=== PATIENT | female | born 1955 | race Caucasian/White ===

== ENCOUNTER 2018-03-28 19:34 | Emergency (ER) | payer MEDICARE ==
[~2018-03-28] VITALS: Ht 160 cm; Wt 77.1 kg
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
--- OUTSIDE RECORDS SUMMARY | 2018-03-28 19:37 | XMS REPORT ---
Author Author [facility] Address Unknown Phone Unavailable Care Team Providers Care Segment Assembler Name Role Phone Unavailable Unavailable Payers Payer Name Policy Type Policy Number Effective Date Expiration Date Problems This patient has no known problems. Allergies, Adverse Reactions, Alerts Allergy Name Allergy Type Status Severity Reaction(s) Onset Date Inactive Date Treating Clinician Comments Sulfa (Sulfonamide Antibiotics) DA Active [place] 2016-11-11 00:00:00 venom-honey bee DA Active U 2016-11-11 00:00:00 Medications This patient has no known medications.
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
--- OUTSIDE RECORDS SUMMARY | 2018-03-28 19:37 | XMS REPORT | Summary of Care ---
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 Role Phone LISA Patel, EVONNE Unavailable Unavailable YERuth D.OCandi, [place] Unavailable Unavailable SONDRA Patel, [place] Unavailable Unavailable YEH DO [place], [place] Unavailable Unavailable Unavailable Unavailable Functional Status Name Dates Details Functional status health issues are not documented Status: Name Dates Details Cognitive status health issues are not documented Status: Problems Name Dates Details Excessive cerumen in left ear canal (380.4, H61.22) Status: Active GERD without esophagitis (530.81, K21.9) Status: Active Abdominal bloating (787.3, R14.0) Status: Active Flatulence (787.3, R14.3) Status: Active Abdominal pain (789.00, R10.9) Status: Active Nausea (787.02, R11.0) Status: Active Fatty liver disease, nonalcoholic (571.8, K76.0) Status: Active Anxiety (300.00, F41.9) Status: Active COPD, 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 Quantity: 90 [place]OR[place] AMARO M.D. Active Sucralfate 1 GM Oral Tablet TAKE 1 TABLET 4 TIMES DAILY 1 HOUR BEFORE MEALS AND AT BEDTIME. * Quantity: 120 Refills: 5 YEH D.O., KEVIN-SÁNCHEZ Active Loxapine Succinate 25 MG Oral Capsule TAKE 1 CAPSULE TWICE DAILY. * Quantity: 60 Refills: 5 YEH D.O.[place] Active MetFORMIN HCl - 500 MG Oral Tablet TAKE 1 TABLET TWICE DAILY. * Quantity: 60 Refills: 2 EVONNE GONZALEZ M.D. Active ProAir HFA 108 (90 Base) MCG/ACT Inhalation Aerosol Solution INHALE 1 PUFF BY MOUTH EVERY 4 HOURSWAITING ON LABS * Quantity: 8.5 Refills: 5 YEH D.O.[place] * Start : 14-May-2017 Active Albuterol Sulfate (2.5 MG/3ML) 0.083% Inhalation Nebulization Solution USE 1 UNIT DOSE EVERY 4-6 HOURS NEEDED FOR WHEEZING . * Quantity: 1 Refills: 5 YEH D.O.[place] Active 25 x 3 ML Plas Cont Ventolin HFA 108 (90 Base) MCG/ACT Inhalation Aerosol Solution INHALE 1 TO 2 PUFFS BY MOUTH EVERY 4 TO 6 HOURS NEEDED * Quantity: 1 Refills: 5 YEH D.O.[place] * Start : 22-Apr-2017 Active 18 GM Inhaler Spiriva HandiHaler 18 MCG Inhalation Capsule INHALE CONTENTS OF 1 CAPSULE ONCE DAILY. * Quantity: 30 Refills: 5 YEH D.O.[place] * Start : 22-Apr-2017 Active Losartan Potassium 25 MG Oral Tablet TAKE 1 TABLET Daily * Quantity: 30 Refills: 5 YEH D.O.[place] * Start : 22-Apr-2017 Active Advair Diskus 250-50 MCG/DOSE Inhalation Aerosol Powder Breath Activated INHALE 1 PUFF TWICE DAILY. * Quantity: 1 Refills: 5 YEH D.O.[place] * Start : 22-Apr-2017 Active 14 Each Pack CloNIDine HCl - 0.1 MG Oral Tablet TAKE 1 TABLET BY MOUTH AT BEDTIME * Quantity: 90 Refills: 1 YEH D.O.[place] * Start : 22-Apr-2017 Active Nebulizer Device USE DIRECTED. * Quantity: 1 Refills: 0 YEH D.O.[place] * Start : 22-Apr-2017 Active HumaLOG KwikPen 100 UNIT/ML Subcutaneous Solution Pen-injector inject 20 U SC qAC plus CF 1:50>150 mg/dL MDD:80 U * Quantity: 2 Refills: 2 LISA M.D., EVONNE * Start : 01-May-2017 Active 5 x 3 ML Pen BD Pen Needle Leatha U/F 32G X 4 MM use to inject insulin 4xs daily * Quantity: 2 Refills: 2 LISA M.D., EVONNE * Start : 01-May-2017 Active 100 Unit Box Omeprazole 40 MG Oral Capsule Delayed Release TAKE 1 CAPSULE DAILY * Quantity: 30 Refills: 11 YEH D.O., [place] * Start : 28-Jul-2017 Active Carafate 1 GM/10ML Oral Suspension TAKE 10 ML 3 TIMES DAILY * Quantity: 90 Refills: 11 YEH D.O., [place] * Start : 28-Jul-2017 Active Tresiba FlexTouch 200 UNIT/ML Subcutaneous Solution Pen-injector inject 66 U SC qHS MDD:75 U * Quantity: 2 Refills: 2 LISA M.D., EVONNE * Start : 27-Aug-2017 Active 3 x 3 ML Pen Trulicity 0.75 MG/0.5ML Subcutaneous Solution Pen-injector inject 0.75 mg SC once weekly * Quantity: 1 Refills: 2 LISA M.D., EVONNE * Start : 27-Aug-2017 Active 4 x 0.5 ML Pen PARoxetine HCl - 40 MG Oral Tablet TAKE 1 TABLET DAILY DIRECTED. * Quantity: 90 Refills: 0 AMARO M.D., VENESSAOTICOE * Start : 27-Oct-2017 Active Cetirizine HCl - 10 MG Oral Tablet TAKE 1 TABLET DAILY PRN * Quantity: 30 Refills: 5 YEH D.O., [place] * Start : 10-Feb-2018 Active Montelukast Sodium 10 MG Oral Tablet TAKE 1 TABLET BY MOUTH EVERY DAY * Quantity: 30 Refills: 5 YEH D.O., KEVIN-SÁNCHEZ * Start : 10-Feb-2018 Active Allergies and Adverse Reactions Name Dates Details Sulfa Drugs (Allergy) Status: Active Past Medical History Name Dates Details H/O cardiovascular stress test (V15.89, Z92.89) Status: Resolved History of arthritis (V13.4, Z87.39) Status: Resolved History of asthma (V12.69, Z87.09) Status: Resolved History of chronic obstructive lung disease (V12.69, Z87.09) Status: Resolved History of diabetes mellitus (V12.29, Z86.39) Status: Resolved History of hypertension (V12.59, Z86.79) Status: Resolved Procedures Procedure Dates Details EKG (In Office) Date: 18-Feb-2018 History of section Completed History of Sinus surgery Completed History of Tonsillectomy Completed History of Hernia repair Completed Immunization Name Dates Details Fluzone Quadrivalent 0.5 ML Intramuscular Suspension Prefilled Syringe Lot #: [id number] on: 18-Feb-2018 Family History Name Dates Details Family history of diabetes mellitus (V18.0, Z83.3) Comments: Family History Status: Active Name Dates Details Family history of renal failure (V18.69, Z84.1) Status: Active Name Dates Details Family history of bowel obstruction (V18.59, Z83.79) Status: Active Family history of pancreatitis (V18.59, Z83.79) Status: Active Social History Name Dates Details - Status: Name Dates Details Current every day smoker Vital Signs Date Test Result Details [id number] BP Systolic 121 mm[Hg] Status: Comments: Location: LUE; Position: Sitting BP Diastolic 82 mm[Hg] Status: Comments: Location: LUE; Position: Sitting Height 63 in Status: Body Mass Index Calculated 30.32 kg/m2 Status: Body Surface Area Calculated 1.81 m2 Status: Weight 171.1875 lb Status: Heart Rate 99 /min Status: 70-[id number]:11 BP Systolic 117 mm[Hg] Status: Comments: Location: LUE; Position: Sitting BP Diastolic 77 mm[Hg] Status: Comments: Location: LUE; Position: Sitting Height 63 in Status: Body Mass Index Calculated 30.9 kg/m2 Status: Body Surface Area Calculated 1.82 m2 Status: Weight 174.4375 lb Status: Heart Rate 86 /min Status: Temperature 97.6 f Status: Comments: Method: Temporal Respiration Rate 16 /min Status: 75-[id number] BP Systolic 120 mm[Hg] Status: Comments: Location: LUE; Position: Sitting BP Diastolic 80 mm[Hg] Status: Comments: Location: LUE; Position: Sitting Height 63 in Status: Body Mass Index Calculated 30.82 kg/m2 Status: Body Surface Area Calculated 1.82 m2 Status: Weight 174 lb Status: Heart Rate 101 /min Status: Temperature 98 f Status: Comments: Method: Temporal Respiration Rate 16 /min Status: [id number]:10 Physical Findings 9 Status: Comments: PHQ-9 Adult Depression Screening Physical Findings 13 Status: Comments: MARCELA-7 Screening [id number]-[id number]:09 BP Systolic 130 mm[Hg] Status: Comments: Location: LUE; Position: Sitting BP Diastolic 85 mm[Hg] Status: Comments: Location: LUE; Position: Sitting Height 63 in Status: Body Mass Index Calculated 31.63 kg/m2 Status: Body Surface Area Calculated 1.84 m2 Status: Weight 178.5625 lb Status: Heart Rate 117 /min Status: Comments: Location: L Brachial Artery; Temperature 96.8 f Status: Comments: Method: Temporal Respiration Rate 16 /min Status: Results Date Description Value Details [id number] Glucose (Point of Care In Office) Glucose POC Lifescan 107 06-Mxg-222464:14 [O] Hemoglobin A1c (in office) HEMOGLOBIN A1c 6.1 Plan of Care Name Dates Details Planned Observations Planned Goals not documented Planned Encounters Appointment; FLOR[place] AMARO M.D. On: 14-Apr-2018 13:30 Appointment; EVONNE GONZALEZ M.D. On: 21-May-2018 13:00 Interventions Provided Medication Changes* BD Pen Needle Leatha U/F 32G X 4 MM - Renew * HumaLOG KwikPen 100 UNIT/ML Subcutaneous Solution Pen-injector - Renew * MetFORMIN HCl - 500 MG Oral Tablet - Renew * Tresiba FlexTouch 200 UNIT/ML Subcutaneous Solution Pen-injector - Renew * Trulicity 0.75 MG/0.5ML Subcutaneous Solution Pen-injector - Renew Labs/Procedures/Imaging* [O] Hemoglobin A1c (in office); Done: 18 Feb 2018 * Glucose (Point of Care In Office); Done: 18 Feb 2018 Instructions* Patient Specific Education Given; Done: 18 Feb 2018 Medications/Immunizations Administered* Fluzone Quadrivalent 0.5 ML Intramuscular Suspension Prefilled Syringe; Done: 18 Feb 2018 Discussion/Summary* 62 yo F with DM2 here for f/u. * A1c is 6.1%, at goal. Recommend SMBG 3-4xs daily. Continue Tresiba 66 U qHS, Humalog 20 U qAC plus CF 50 if needed. Advised against taking until her meal in front of her to avoid hypoglycemia. She reported she understood. Continue metformin 500 mg BID and Trulicity 0.75 mg SC once weekly. Recommend MNT, avoid unnecessary snacking, exercise and weight loss. BP is good. She's agreeable to flu vaccine today. She still has not done any baseline labs, stressed the importance, she reported she will go tomorrow. F/U in 3 mos. Instructions Name Dates Details Instructions not documented Encounters Appointment; CHINA BELL D.O. Encounter Diagnosis: Problem not documented On: 22-Apr-2017 14:00 Appointment; DELVIN CRENSHA[address] Encounter Diagnosis: Problem not documented On: 30-Apr-2017 15:00 Appointment; EVONNE GONZALEZ M.D. Encounter Diagnosis: Problem not documented On: 10-Jun-2017 13:00 Appointment; DAVY HUGHES M.D. Encounter Diagnosis: Problem not documented On: 30-Jun-2017 14:30 Appointment; CH[place] BELL D.O. Encounter Diagnosis: Problem not documented On: 14-Jul-2017 15:30 Appointment; JF RED M.D. Encounter Diagnosis: Problem not documented On: 28-Jul-2017 13:00 Appointment; NGOZI HOWELL M.D. Encounter Diagnosis: Problem not documented On: 04-Aug-2017 15:30 Appointment; EVONNE GONZALEZ M.D. Encounter Diagnosis: Problem not documented On: 27-Aug-2017 13:00 Appointment; CH[place] BELL D.O. Encounter Diagnosis: Problem not documented On: 27-Oct-2017 15:45 Appointment; EVONNE GONZALEZ M.D. Encounter Diagnosis: Problem not documented On: 25-Nov-2017 13:00 Appointment; FLOR[place] AMARO M.D. Encounter Diagnosis: Problem not documented On: 08-Dec-2017 15:00 Appointment; [place] AMARO M.D. Encounter Diagnosis: Problem not documented On: 21-Jan-2018 14:00 Appointment; CHINA BELL D.O. Encounter Diagnosis: Problem not documented On: 10-Feb-2018 14:45 Appointment; FLOR[place] AMARO M.D. Encounter Diagnosis: Problem not documented On: 18-Feb-2018 13:00 Appointment; EVONNE GONZALEZ M.D. Encounter Diagnosis: Problem not documented On: 18-Feb-2018 14:00
== END 2018-03-28 22:28 | disposition home or self-care (01) ==
LOC: FSED 19:34
DX: K02.9 Dental caries, unspecified (principal); H69.91 Unspecified Eustachian tube disorder, right ear; I10 Essential (primary) hypertension; E11.9 Type 2 diabetes mellitus without complications; F25.9 Schizoaffective disorder, unspecified
CPT/HCPCS: 99283

== ENCOUNTER 2018-08-14 23:44 | Emergency (ER) | payer MEDICARE, OTHER ==
[~2018-08-14] VITALS: Ht 160 cm; Wt 77.1 kg
--- OUTSIDE RECORDS SUMMARY | 2018-08-14 23:48 | XMS REPORT ---
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 Allergies, Adverse Reactions, Alerts Allergy Name Allergy Type Status Severity Reaction(s) Onset Date Inactive Date Treating Clinician Comments Sulfa (Sulfonamide Antibiotics) DA Active MO 2018-04-08 00:00:00 Medications This patient has no known medications.
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
--- OUTSIDE RECORDS SUMMARY | 2018-08-14 23:48 | XMS REPORT | Summary of Care ---
Author Author Jono Souza R.N. Organization Unknown Address Unknown Phone Unavailable Care Team Providers Care Returned Goods Repairer Name Role Phone EVONNE COBURN M.D. Unavailable Unavailable YEH D.[place] Christopher Unavailable Unavailable Jono Souza R.N. 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 Quantity: 90 YEH D.O., [place] Active Sucralfate 1 GM Oral Tablet TAKE 1 TABLET BY MOUTH THREE TIMES DAILY * Quantity: 90 Refills: 0 YEH D.O., [place] * Start : 06-Jul-2018 Active Loxapine Succinate 25 MG Oral Capsule TAKE 1 CAPSULE TWICE DAILY. * Quantity: 60 Refills: 5 YEH D.O.[place] Active metFORMIN HCl - 500 MG Oral Tablet TAKE 1 TABLET TWICE DAILY. * Quantity: 60 Refills: 2 EVONNE COBURN M.D. Active ProAir HFA 108 (90 Base) MCG/ACT Inhalation Aerosol Solution INHALE 1 PUFF BY MOUTH EVERY 4 HOURS * Quantity: 8.5 Refills: 5 YEH D.O., [place] * Start : 14-May-2017 Active Albuterol Sulfate (2.5 MG/3ML) 0.083% Inhalation Nebulization Solution USE 1 UNIT DOSE EVERY 4-6 HOURS NEEDED FOR WHEEZING . * Quantity: 1 Refills: 5 YEH D.O., [place] Active 25 x 3 ML Plas Cont Ventolin HFA 108 (90 Base) MCG/ACT Inhalation Aerosol Solution INHALE 1 TO 2 PUFFS BY MOUTH EVERY 4 TO 6 HOURS NEEDED * Quantity: 1 Refills: 5 YEH D.O., [place] * Start : 22-Apr-2017 Active 18 GM Inhaler Spiriva HandiHaler 18 MCG Inhalation Capsule INHALE CONTENTS OF 1 CAPSULE ONCE DAILY. * Quantity: 30 Refills: 5 YEH D.O., [place] * Start : 22-Apr-2017 Active Losartan Potassium 25 MG Oral Tablet TAKE 1 TABLET BY MOUTH DAILY * Quantity: 90 Refills: 0 YEH D.O., [place] * Start : 12-Jun-2018 Active Advair Diskus 250-50 MCG/DOSE Inhalation Aerosol Powder Breath Activated INHALE 1 PUFF TWICE DAILY. * Quantity: 1 Refills: 5 YEH D.O.[place] * Start : 22-Apr-2017 Active 14 Each Pack cloNIDine HCl - 0.1 MG Oral Tablet TAKE 1 TABLET BY MOUTH AT BEDTIME * Quantity: 90 Refills: 1 YEH D.O., [place] * Start : 22-Apr-2017 Active Nebulizer Device USE DIRECTED. * Quantity: 1 Refills: 0 YEH D.O., [place] * Start : 22-Apr-2017 Active HumaLOG KwikPen 100 UNIT/ML Subcutaneous Solution Pen-injector inject 20 U SC qAC plus CF 1:50>150 mg/dL MDD:80 U * Quantity: 2 Refills: 2 LISA Patel, EVONNE * Start : 01-May-2017 Active 5 x 3 ML Pen BD Pen Needle Laetha U/F 32G X 4 MM use to inject insulin 4xs daily * Quantity: 2 Refills: 2 EVONNE COBURN M.D. * Start : 01-May-2017 Active 100 Unit Box amLODIPine Besylate 5 MG Oral Tablet TAKE 1 TABLET BY MOUTH DAILY * Quantity: 30 Refills: 2 YEH D.O.[place] * Start : 13-Aug-2018 Active Omeprazole 40 MG Oral Capsule Delayed Release TAKE 1 CAPSULE DAILY * Quantity: 30 Refills: 11 YEH D.O., [place] * Start : 28-Jul-2017 Active Carafate 1 GM/10ML Oral Suspension TAKE 10 ML 3 TIMES DAILY * Quantity: 90 Refills: 11 YEH D.O.[place] * Start : 28-Jul-2017 Active Tresiba FlexTouch 200 UNIT/ML Subcutaneous Solution Pen-injector inject 66 U SC qHS MDD:75 U * Quantity: 2 Refills: 2 EVONNE COBURN M.D. * Start : 27-Aug-2017 Active 3 x 3 ML Pen Trulicity 0.75 MG/0.5ML Subcutaneous Solution Pen-injector inject 0.75 mg SC once weekly * Quantity: 1 Refills: 2 EVONNE COBURN M.D. * Start : 27-Aug-2017 Active 4 x 0.5 ML Pen PARoxetine HCl - 40 MG Oral Tablet TAKE 1 TABLET DAILY DIRECTED. * Quantity: 90 Refills: 1 YEH D.O., [place] * Start : 27-Oct-2017 Active Cetirizine HCl - 10 MG Oral Tablet TAKE 1 TABLET DAILY PRN * Quantity: 30 Refills: 5 YEH D.O.[place] * Start : 10-Feb-2018 Active Azelastine HCl - 0.1 % Nasal Solution USE 1 TO 2 SPRAYS IN EACH NOSTRIL TWICE DAILY NEEDED. * Quantity: 1 Refills: 5 YEH D.O., [place] * Start : 10-Feb-2018 Active 30 ML Bottle Montelukast Sodium 10 MG Oral Tablet TAKE 1 TABLET BY MOUTH EVERY DAY * Quantity: 30 Refills: 5 WEIH [place] Cooper * Start : 10-Feb-2018 Active OneTouch Ultra Blue In Vitro Strip Check BG 4x a day * Quantity: 4 Refills: 0 LISA M.D., EVONNE * Start : 16-Apr-2018 Active 100 Strip Box OneTouch Ultra 2 w/Device Kit check bs 4x daily * Quantity: 1 Refills: 0 LISA M.D., EVONNE * Start : 01-May-2018 Active Allergies and Adverse Reactions Name Dates [...] Z86.79) Status: Resolved Procedures Procedure Dates Details History of section Completed History of Sinus surgery Completed History of Tonsillectomy Completed History of Hernia repair Completed Immunization Name Dates Details Fluzone Quadrivalent 0.5 ML Intramuscular Suspension Prefilled Syringe Lot #: [id number] on: 18-Feb-2018 Family History Name Dates Details [...] smoker Vital Signs Date Test Result Details [id number] BP Systolic 121 mm[Hg] Status: Comments: Location: LUE; Position: Sitting BP Diastolic 76 mm[Hg] Status: Comments: Location: LUE; Position: Sitting Height 63 in Status: Weight 168.0625 lb Status: Body Mass Index Calculated 29.77 kg/m2 Status: Body Surface Area Calculated 1.8 m2 Status: Heart Rate 98 /min Status: Results Date Description Value Details [id number] Glucose (Point of Care In Office) Glucose POC [facility] 37 66-[id number]:45 [O] Hemoglobin A1c (in office) HEMOGLOBIN A1c 5.3 99-Uvm-650419:00 Glucose (Point of Care In Office) Glucose POC [facility] 119 Plan of Care Name Dates Details Planned Observations Planned Goals not documented Planned Encounters Appointment; DELVIN CRENSHAW RD On: 24-Sep-2018 13:00 Appointment; EVONNE COBURN M.D. On: 20-Oct-2018 13:30 Interventions Provided Discussion/Summary* Guideline Used: * Other: Cancel appointment * Anmol M/S * Patient called to get cancel the appointment on 08/17/[address] Gayle as patient is feeling better. Appointment cancelled as requested. * No signs or symptoms reported at this time. * Intended Caller Action: * Other: Cancel appointment Instructions Name Dates Details Instructions not documented Encounters Appointment; [place] GAYLE D.O. Encounter Diagnosis: Problem not documented On: 22-Apr-2017 14:00 Appointment; DELVIN CRENSHAW RD Encounter Diagnosis: Problem not documented On: 30-Apr-2017 15:00 Appointment; EVONNE COBURN M.D. Encounter Diagnosis: Problem not documented On: 10-Jun-2017 13:00 Appointment; DAVY HUGHES M.D. Encounter Diagnosis: Problem not documented On: 30-Jun-2017 14:30 Appointment; [place] GAYLE D.O. Encounter Diagnosis: Problem not documented On: 14-Jul-2017 15:30 Appointment; JF RED M.D. Encounter Diagnosis: Problem not documented On: 28-Jul-2017 13:00 Appointment; NGOZI HOWELL M.D. Encounter Diagnosis: Problem not documented On: 04-Aug-2017 15:30 Appointment; EVONNE COBURN M.D. Encounter Diagnosis: Problem not documented On: 27-Aug-2017 13:00 Appointment; [place] GAYLE D.O. Encounter Diagnosis: Problem not documented On: 27-Oct-2017 15:45 Appointment; EVONNE COBURN M.D. Encounter Diagnosis: Problem not documented On: 25-Nov-2017 13:00 Appointment; [place] AMARO M.D. Encounter Diagnosis: Problem not documented On: 08-Dec-2017 15:00 Appointment; [place] AMARO M.D. Encounter Diagnosis: Problem not documented On: 21-Jan-2018 14:00 Appointment; [place] GAYLE D.O. Encounter Diagnosis: Problem not documented On: 10-Feb-2018 14:45 Appointment; [place] AMARO M.D. Encounter Diagnosis: Problem not documented On: 18-Feb-2018 13:00 Appointment; EVONNE COBURN M.D. Encounter Diagnosis: Problem not documented On: 18-Feb-2018 14:00 Appointment; [place] GAYLE D.O. Encounter Diagnosis: Problem not documented On: 06-May-2018 14:30 Appointment; EVONNE COBURN M.D. Encounter Diagnosis: Problem not documented On: 21-May-2018 13:00 Appointment; EVONNE COBURN M.D. Encounter Diagnosis: Problem not documented On: 20-Jul-2018 13:30
[2018-08-15] MEDS ORDERED: ALBUTEROL SULF 0.083% NEB SOLN 3 ML NEB NEB STA ×2 (00:06→00:09)
[2018-08-15] MEDS ORDERED: DEXAMETHASONE SOD PHOS 10 MG/1 ML VIAL IV ONE (00:15)
[2018-08-15] MEDS ORDERED: IPRATROPIUM BROMIDE 0.02% 2.5 ML NEB NEB ONE (00:15)
--- NOTE | 2018-08-15 01:11 | Diagnostic Imaging Report ---
EXAMINATION: CXR 2 VIEW - HOPD INDICATION: Cough, shortness of breath ^[id number] ^[id number] COMPARISON: None FINDINGS: PA and lateral views TUBES and LINES: None. LUNGS: Diffuse hyperinflation. There is no evidence of pneumonia or pulmonary edema. PLEURA: No pleural effusion or pneumothorax. HEART AND MEDIASTINUM: The heart is normal in size. The aorta is tortuous. BONES AND SOFT TISSUES: No focal osseous lesions. Soft tissues are unremarkable. UPPER ABDOMEN: No free air under the diaphragm. IMPRESSION: Pulmonary hyperinflation suggestive of small airways disease. No acute cardiopulmonary process. Signed by: Dr. Alta Umana MD on 08/15/2018 1:07 AM
== END 2018-08-15 01:31 | disposition home or self-care (01) ==
LOC: FSED 23:44
DX: J44.1 Chronic obstructive pulmonary disease with (acute) exacerbation (principal); F17.200 Nicotine dependence, unspecified, uncomplicated; I10 Essential (primary) hypertension; E11.9 Type 2 diabetes mellitus without complications; R00.0 Tachycardia, unspecified
CPT/HCPCS: 71046; 80053; 85025; 93005; 99283